=== PATIENT | female | born 1975 ===

== ENCOUNTER 2018-03-02 13:31 | Emergency (ER) | payer BC ==
[2018-03-02 13:32] VITALS: BMI 39.9
[2018-03-02 13:37] VITALS: TEMP 98.2; O2SAT 99
[2018-03-02] MEDS ORDERED: Sodium Chloride 0.9% 1,000 ML IV ONE (13:53)
[2018-03-02] MEDS ORDERED: Sodium Chloride 0.9% 1,000 ML ONE (14:02)
--- NOTE | 2018-03-02 14:10 | C.PDOC ---
History Of Present Illness <Jacy Grubbs - Last Filed: 03/02/18 16:05> <Jose Toney DO - Last Filed: 03/03/18 00:29> 42 year old F diagnosed with colitis at [facility] [place] weeks ago presents today for worsening right sided abdominal pain. Patient says she was started on Cipro and Flagyl post [facility] ER visit, but her abdominal pain never completely resolved. Patient has an appointment to see GI on March 31. Yesterday patient started to have severe right sided abdominal pain which comes and goes. Patient says the pain is exacerbated by eating and movement and is made better with rest. Today pain became burning in nature and patient went to urgent care who then sent her to the ED. Patient admits to nausea, lightheadedness, and constipation. Patient has very small bowel movements every few days. Patient currently rates her abdominal pain 6/10. Patient denies any fever, vomiting, or urinary symptoms. LMP February 09. Of note, patient has lost about 115lbs in the last 3 years. ( Jacy Grubbs) History Per: Patient History/Exam Limitations: no limitations Onset/Duration Of Symptoms: Days, Waxing/Waning Current Symptoms Are (Timing): Still Present Severity: Moderate Pain Scale Rating Of: 6 Location Of Pain/Discomfort: RUQ, RLQ Quality Of Discomfort: Burning Associated Symptoms: Nausea, Loss Of Appetite Exacerbating Factors: Food, Upright Position Alleviating Factors: Rest Last Bowel Movement: Today (minimal) <Jacy Grubbs - Last Filed: 03/02/18 16:05> <Jose Toney DO - Last Filed: 03/03/18 00:29> Chief Complaint (Nursing): Abdominal Pain Past Medical History Surgical History: Family History: States: Unknown Family Hx - Social History Hx Alcohol Use: Yes Hx Substance Use: Yes (marijuana) - Immunization History Hx Tetanus Toxoid Vaccination: No Hx Influenza Vaccination: No Hx Pneumococcal Vaccination: No <Jacy Grubbs - Last Filed: 03/02/18 16:05> Vital Signs: Last Vital Signs Temp 98.2 F 03/02/18 13:36 Pulse 60 03/02/18 17:17 Resp 18 03/02/18 17:17 BP 129/82 03/02/18 17:17 Pulse Ox 99 06/08/18 17:17 Review Of Systems Constitutional: Negative for: Fever Cardiovascular: Positive for: Light Headedness. Negative for: Chest Pain Respiratory: Negative for: Shortness of Breath Gastrointestinal: Positive for: Nausea, Constipation. Negative for: Vomiting, Diarrhea Genitourinary: Negative for: Dysuria, Frequency, Hematuria Skin: Negative for: Rash <Jacy Grubbs - Last Filed: 03/02/18 16:05> Physical Exam - Physical Exam Appears: Non-toxic, No Acute Distress Skin: Normal Color, Warm, Dry Head: Atraumatic, Normacephalic Eye(s): bilateral: Normal Inspection Chest: Symmetrical Cardiovascular: Rhythm Regular Respiratory: Normal Breath Sounds, No Rales, No Rhonchi, No Wheezing Gastrointestinal/Abdominal: Bowel Sounds, Soft, Tenderness, Guarding Neurological/Psych: Oriented x3 <Jacy Grubbs - Last Filed: 03/02/18 16:05> ED Course And Treatment - Laboratory Results Result Diagrams: 03/02/18 14:13 03/02/18 14:13 O2 Sat by Pulse Oximetry: 99 <Jacy Grubbs - Last Filed: 03/02/18 16:05> - Laboratory Results Result Diagrams: 03/02/18 14:13 03/02/18 14:13 <Jose Toney DO - Last Filed: 03/03/18 00:29> Medical Decision Making <Jacy Grubbs - Last Filed: 03/02/18 16:05> <Jose Toney DO - Last Filed: 03/03/18 00:29> Medical Decision Making: Abdominal U/S: cholelithiasis without sonographic evidence of acute cholecystitis (Jacy Grubbs) Disposition <Jacy Grubbs - Last Filed: 03/02/18 16:05> - Disposition Disposition Time: 16:50 <Jose Toney DO - Last Filed: 03/03/18 00:29> - Disposition Referrals: [facility], [Non-Staff] - Disposition: HOME/ ROUTINE Condition: GOOD Additional Instructions: TACHO BURNETT, thank you for letting us take care of you today. Your provider was Jose Toney DO and you were treated for ABD PAIN. The emergency medical care you received today was directed at your acute symptoms. If you were prescribed any medication, please fill it and take as directed. It may take several days for your symptoms to resolve. Return to the Emergency Department if your symptoms worsen, do not improve, or if you have any other problems. Please contact your doctor or call one of the physicians/clinics you have been referred to that are listed on the Patient Visit Information form that is included in your discharge packet. Bring any paperwork you were given at discharge with you along with any medications you are taking to your follow up visit. Our treatment cannot replace ongoing medical care by a primary care provider outside of the emergency department. Thank you for allowing the [facility] team to be part of your care today. Follow up with your primary care doctor in 2-3 days for re-evaluation and further management. Prescriptions: Ranitidine HCl [Zantac] 150 mg PO BID #14 tablet Instructions: Gallstones (DC) Forms: [employer] (French) - Clinical Impression Clinical Impression: Cholecystitis - PA / CROSS TIE [employer]KER / Resident Statement ALEJANDRO has reviewed & agrees with the documentation as recorded. ALEJANDRO has examined the patient and agrees with the treatment plan. <Jose Toney DO - Last Filed: 03/03/18 00:29>
[2018-03-02 14:22] LABS: BASO % 0.5 % (0.0-2.0); EOS # 0.1 K/uL (0.0-0.7); HEMOGLOBIN 13.6 g/dL (11.0-16.0); LYMPH # 1.3 K/uL (1.0-4.3); LYMPH % 13.8 % (20.0-40.0); MEAN CELL VOLUME 83.8 fL (81.0-99.0); MEAN CORPUSCULAR HEMOGLOBIN 27.9 pg (27.0-31.0); MEAN CORPUSCULAR HGB CONC 33.3 g/dL (33.0-37.0); MEAN PLATELET VOLUME 8.3 fL (7.2-11.7); MONO # 0.9 K/uL (0.0-0.8); NEUT # 7.4 K/uL (1.8-7.0); NEUT % 75.7 % (50.0-75.0); NRBC % 0.1 % (0.0-2.0); RBC 4.87 Mil/uL (3.80-5.20); WHITE BLOOD COUNT 9.7 K/uL (4.8-10.8)
[2018-03-02 14:34] LABS: ALB/GLOB RATIO 1.1 (1.0-2.1); ALBUMIN 3.9 g/dL (3.5-5.0); ALT/SGPT 6 U/L (9-52); AST/SGOT 24 U/L (14-36); BLOOD UREA NITROGEN 8 mg/dL (7-17); CALCIUM 9.2 mg/dl (8.6-10.4); GFR AFRICAN-AMERICAN > 60; GFR NON-AFRICAN AMERICAN > 60; LIPASE 123 U/L (23-300)
--- NOTE | 2018-03-02 15:10 | US ---
HISTORY: right-sided abdominal pain COMPARISON: None. TECHNIQUE: Sonographic evaluation of the right upper quadrant of the abdomen. FINDINGS: LIVER: Measures 14.2 cm in length. Normal echogenicity of the liver parenchyma. No mass. No intrahepatic bile duct dilatation. GALLBLADDER: Cholelithiasis without gallbladder wall thickening/edema or pericholecystic fluid. Sonographic Bertrand's sign was not elicited. COMMON BILE DUCT: Measures 5 mm. No stones. No dilatation. PANCREAS: Unremarkable as visualized. No mass. No ductal dilatation. RIGHT KIDNEY: Measures 11.2 x 4.4 x 4.7 cm in length. Normal echogenicity. No calculus, mass, or hydronephrosis. AORTA: No aneurysmal dilatation. IVC: Unremarkable. OTHER FINDINGS: None . IMPRESSION: Cholelithiasis without sonographic evidence of acute cholecystitis.
[2018-03-02 15:50] LABS: SQUAMOUS EPITHIAL 9 /hpf (0-5); URINE BACTERIA RARE (<OCC); URINE BILIRUBIN NEGATIVE (NEGATIVE); URINE BLOOD NEGATIVE (NEGATIVE); URINE CLARITY Hazy (Clear); URINE COLOR Yellow (YELLOW); URINE GLUCOSE (UA) NORMAL (Normal); URINE LEUKOCYTE ESTERASE NEG Leu/uL (Negative); URINE PROTEIN NEGATIVE (NEGATIVE); URINE UROBILINOGEN NORMAL mg/dL (0.2-1.0)
--- NOTE | 2018-03-02 16:42 | CT ---
PROCEDURE: CT Abdomen and Pelvis with contrast HISTORY: right-sided abdominal pain COMPARISON: CT scan of the abdomen pelvis dated 03/30/2016. TECHNIQUE: Contrast dose: 100 mL Visipaque 320 Radiation dose: Total exam DLP = 941.2 mGy-cm. This CT exam was performed using one or more of the following dose reduction techniques: Automated exposure control, adjustment of the mA and/or kV according to patient size, and/or use of iterative reconstruction technique. FINDINGS: LOWER THORAX: Unremarkable. LIVER: Unremarkable. No gross lesion or ductal dilatation. GALLBLADDER AND BILE DUCTS: Cholelithiasis. No gallbladder wall thickening/edema or pericholecystic fluid. PANCREAS: Unremarkable. No gross lesion or ductal dilatation. SPLEEN: Unremarkable. ADRENALS: Unremarkable. No mass. KIDNEYS AND URETERS: Nonobstructive mm left upper pole, 5 mm left mid pole calculi. No hydronephrosis. No solid mass. VASCULATURE: Unremarkable. No aortic aneurysm. BOWEL: Unremarkable. No obstruction. No gross mural thickening. APPENDIX: Normal appendix. PERITONEUM: Small fat containing umbilical hernia. No free fluid. No free air. LYMPH NODES: Unremarkable. No enlarged lymph nodes. BLADDER: Unremarkable. REPRODUCTIVE: Unremarkable. 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 No acute fracture. OTHER FINDINGS: None. IMPRESSION: No acute abdominal pelvic pathology. Cholelithiasis without CT evidence of acute cholecystitis. Nonobstructive left nephrolithiasis. No obstructive uropathy or evidence of recently passed genitourinary calculus. Additional stable findings as above.
[2018-03-02 17:18] VITALS: BP 129/82; PULSE 60; RESP 18
== END 2018-03-02 17:18 | disposition home or self-care (01) ==
LOC: C.ER 13:31
DX: K81.9 Cholecystitis, unspecified (principal)
CPT/HCPCS: 74177; 76705; 80053; 81001; 83690; 85025; 87086; 96361; 96374; 99284; J2765; J7030

== ENCOUNTER 2018-12-31 17:36 | Emergency (ER) | payer BC ==
[2018-12-31 17:37] VITALS: BMI 39.9
[2018-12-31 17:57] VITALS: O2SAT 100
[2018-12-31] MEDS ORDERED: Sodium Chloride 0.9% 1,000 ML IV ONE (20:13)
--- NOTE | 2018-12-31 20:13 | C.PDOC ---
History Of Present Illness Patient presents with sharp stabbing RUQ pain associated with vomiting and mild diarrhea today. Patient has Hx of gallstones, was suppose to have gall bladder taken out. Denies fever or chills. Time Seen by Provider: 12/31/18 20:13 Chief Complaint (Nursing): Abdominal Pain History Per: Patient History/Exam Limitations: no limitations Onset/Duration Of Symptoms: Hrs Current Symptoms Are (Timing): Still Present Severity: Moderate Pain Scale Rating Of: 5 Location Of Pain/Discomfort: RUQ Radiation Of Pain To:: None Quality Of Discomfort: Sharp, Stabbing Associated Symptoms: Vomiting, Diarrhea Exacerbating Factors: None Alleviating Factors: None Recent travel outside of the [place]: No Abnormal Vaginal Bleeding: No Past Medical History Reviewed: Historical Data, Nursing Documentation, Vital Signs Vital Signs: Last Vital Signs Temp 98.1 F 12/31/18 17:52 Pulse 59 L 12/31/18 17:52 Resp 18 12/31/18 17:52 BP 155/88 H 12/31/18 17:52 Pulse Ox 100 12/31/18 17:52 - Medical History PMH: Gall Bladder Disease Surgical History: Family History: States: No Known Family Hx - Social History Hx Alcohol Use: No Hx Substance Use: Yes (marijuana) - Immunization History Hx Tetanus Toxoid Vaccination: No Hx Influenza Vaccination: No Hx Pneumococcal Vaccination: No Review Of Systems Constitutional: Negative for: Fever, Chills Cardiovascular: Negative for: Chest Pain, Palpitations Respiratory: Negative for: Cough, Shortness of Breath Gastrointestinal: Positive for: Vomiting, Abdominal Pain, Diarrhea Neurological: Negative for: Weakness, Numbness Physical Exam - Physical Exam Appears: Non-toxic Skin: Warm, Dry Head: Normacephalic Oral Mucosa: Moist Chest: Symmetrical, No Tenderness Cardiovascular: Rhythm Regular Respiratory: No Rales, No Rhonchi, No Wheezing Gastrointestinal/Abdominal: Soft, Tenderness (RUQ), No Distention, Guarding (Voluntary), No Rebound Back: No CVA Tenderness Neurological/Psych: Oriented x3 ED Course And Treatment - Laboratory Results Result Diagrams: 12/31/18 20:35 12/31/18 20:35 ECG: Interpreted By Me, Viewed By Me ECG Rhythm: Sinus Rhythm (56), Nonspecific Changes O2 Sat by Pulse Oximetry: 100 (Room air) Pulse Ox Interpretation: Normal Progress Note: EKG, blood work, and urinalysis ordered. Pepcid, zofran, and IV fluids administered. pt refuses ct scan. states she feels better and wants to go home Against Medical Advice - AMA Patient Left Against Medical Advice: The patient declines admission to the hospital and wishes to leave the Emergency Department. This action is against my medical advice. This decision was made with informed refusal. The patient was told that admission to the hospital is necessary. Explanation of the reasons why were discussed. The risks of leaving were explained to the patient and include, but are not limited to, worsening of known or currently unknown conditions, permanent disability and from undiagnosed or untreated conditions. The patient has the capacity to make this informed decision and understands my explanation of the current medical problem and risks of leaving. The patient voluntarily accepts these risks and signed an AMA form documenting our conversation. The patient was given the opportunity to ask questions and reconsider. The patient was encouraged to return to the Emergency Department at any time for further care. Disposition Counseled Patient/Family Regarding: Studies Performed, Diagnosis, Need For Fo llowup - Disposition Referrals: Emir Greer DO [Doctor Osteopathy] - Disposition: AGAINST MEDICAL ADVICE Disposition Time: 20:13 Condition: FAIR Additional Instructions: Please return if symptoms recur Instructions: Acute Abdomen (Belly Pain), Adult (DC) Forms: [employer] (Congolese) - Clinical Impression Clinical Impression: Abdominal pain - Scribe Statement The provider has reviewed the documentation as recorded by the Scribe Feliberto Hart All medical record entries made by the Scribe were at my direction and personally dictated by me. I have reviewed the chart and agree that the record accurately reflects my personal performance of the history, physical exam, medical decision making, and the department course for this patient. I have also personally directed, reviewed, and agree with the discharge instructions and disposition.
[2018-12-31 20:43] LABS: BASO % 0.4 % (0.0-2.0); EOS # 0.2 K/uL (0.0-0.7); EOS % 1.4 % (0.0-4.0); HEMOGLOBIN 14.5 g/dL (11.0-16.0); LYMPH # 1.8 K/uL (1.0-4.3); LYMPH % 16.8 % (20.0-40.0); MEAN CELL VOLUME 85.7 fL (81.0-99.0); MEAN CORPUSCULAR HEMOGLOBIN 28.1 pg (27.0-31.0); MEAN CORPUSCULAR HGB CONC 32.7 g/dL (33.0-37.0); MEAN PLATELET VOLUME 8.1 fL (7.2-11.7); MONO # 0.9 K/uL (0.0-0.8); NEUT # 7.5 K/uL (1.8-7.0); NEUT % 72.4 % (50.0-75.0); RBC 5.18 Mil/uL (3.80-5.20); RED CELL DISTRIBUTION WIDTH 17.2 % (11.5-14.5); WHITE BLOOD COUNT 10.4 K/uL (4.8-10.8)
[2018-12-31 20:53] LABS: HCG,QUALITATIVE URINE NEGATIVE (NEGATIVE)
[2018-12-31 20:56] LABS: PROTHROMBIN TIME 10.4 SECONDS (9.7-12.2)
[2018-12-31 20:57] LABS: URINE AMORPHOUS SEDIMENT MODERATE /ul (<OCC); URINE BILIRUBIN NEGATIVE (NEGATIVE); URINE BLOOD NEGATIVE (NEGATIVE); URINE CLARITY Hazy (Clear); URINE COLOR Yellow (YELLOW); URINE GLUCOSE (UA) NORMAL (Normal); URINE LEUKOCYTE ESTERASE NEG Leu/uL (Negative); URINE PROTEIN NEGATIVE (NEGATIVE); URINE UROBILINOGEN NORMAL mg/dL (0.2-1.0)
[2018-12-31] MEDS ORDERED: Sodium Chloride 0.9% 1,000 ML ONE (20:57)
[2018-12-31 21:00] LABS: ALB/GLOB RATIO 1.4 (1.0-2.1); ALBUMIN 4.6 g/dL (3.5-5.0); ALT/SGPT 7 U/L (9-52); AST/SGOT 38 U/L (14-36); BLOOD UREA NITROGEN 11 mg/dL (7-17); CALCIUM 9.7 mg/dl (8.6-10.4); GFR NON-AFRICAN AMERICAN > 60; LIPASE 140 U/L (23-300)
[2018-12-31] MEDS ORDERED: Iodixanol 320 MG/ML 100 ML BOTTLE IV ONE (22:05)
[2018-12-31 22:52] VITALS: BP 119/73; PULSE 65; RESP 20; TEMP 98.2
== END 2018-12-31 22:45 | disposition left against medical advice (07) ==
LOC: C.ER 17:36
DX: R10.11 Right upper quadrant pain (principal)
CPT/HCPCS: 80053; 81001; 83690; 84703; 85025; 85610; 85730; 93005; 96361; 96374; 96375; 99285; J2405; J7030; Q9967